=== PATIENT | female | born 1970 | race Caucasian/White ===

== ENCOUNTER → 2017-08-01 | Outpatient (CLI) | payer OTHER ==
[~2017-08-01] MED LIST: ACET500; ALBU90OI INH; ALPR.5 PO; ATEN25 PO; CEPH500 PO; CODGUAEL PO; CYCL10 PO; DIAZ5 PO; DOCU100 PO; DOXY100 PO; ESCI10; HYDACE5 PO; KETO10 PO; LAMO100 PO; LISI20 PO; LORA1 PO; MELO7.5 PO; META800 PO; METCAR500 PO; METF500C PO; MULVITMINE; NAPR500 PO; Nasonex17 GM; Norco 5-325 Ta1 EACH PO; OMEP40CA12 PO; PROCODE120 PO; QUET100 PO; RANI150 PO; RXCYCL10 PO; SERT100 PO; SERT50; TRAM50 PO; ZOLP10 PO; Zofran Odt4 MG SL
[2017-08-01 17:17] LABS: Creatinine, Urine Random 40.1 mg/dL (27.00-270.00); Microalb/Creat Ratio UR, Rand 13.915 mg/g (0.000-30.000); Microalbumin, Random Urine 5.58 mg/L (0.000-20.000)
== END | disposition home or self-care (01) ==
LOC: LAB SHORT 15:31 → LAB 15:31
PROVIDERS: Family Medicine
DX: E11.9 Type 2 diabetes mellitus without complications (principal)
CPT/HCPCS: 82043; 82570